=== PATIENT | male | born 1980 | race Caucasian/White ===

== ENCOUNTER 2024-07-28 22:49 | Emergency (ER) | payer OTHER ==
[~2024-07-28] VITALS: Ht 175.3 cm; Wt 79.4 kg
[2024-07-28 22:59] VITALS: TEMP 98
[2024-07-28 23:50] VITALS: BP 129/78; O2SAT 97
[2024-07-29] MEDS: ONDANSETRON HCL/PF 4 MG/2 ML VIAL IVP ONE (00:11)
== END 2024-07-29 01:03 | disposition left against medical advice (07) ==
LOC: ER 22:51
DX: T40.601A Poisoning by unspecified narcotics, accidental (unintentional), initial encounter (principal); R11.0 Nausea; Y92.89 Other specified places as the place of occurrence of the external cause